=== PATIENT | female | born 1965 | race Caucasian/White ===

== ENCOUNTER 2018-01-31 01:17 | Observation (INO) ==
[2018-01-31] MEDS ORDERED: Naloxone 0.4 MG/ML INJ IVP PRN (02:56)
[2018-01-31] MEDS ORDERED: GI Cocktail 40 ML EACH PO ONE (02:58)
--- NOTE | 2018-01-31 04:13 | Internal Med History&Physical ---
Date of Encounter: 01/31/18 Time of Encounter: 03:51 Internal Medicine - H&P: HPI Chief complaint: cp Admitted From: Hospital to Hospital Transfer Plans for Post Hospital Care: Home History of present illness: Ms. Lambert is a 52 year old female presents with cc of chest pain. She was transfer from [facility]. Patient cp was located substernally, sharp, radiating to entire neck and back with assoicated symtoms of sob. She denies diaphoresis, palpitations, N/V, headache. Pain did not worsen with exertion or did not improve with rest. Patient improved after taking aspirin 81mg but she still had residual chest soreness/pressure. Patient was running errands when this happened. Her chest soreness continued to persist and she went to [facility] for evaluation. Patient also said she has had similar chest pain that woke her up in the middle of the night two days ago. She denies metallic taste in the morning. She also reports having band like abdominal pain in her upper abdomen that radiated to the back five days ago that lasted for three days and improved after she took a laxative. She reports problems with constipation. She denies hx of CAD, or family hx of CAD. She reports use of ibuprofen for frequent headaches. She denies hx of GERD. At [facility] patient EKG was NSR without ST-T wave depressions or elevations, troponin WNL, cbc and bmp wnl, cxr wnl. Patient was transferred for further evaluation as [facility] hospital was full. Patient reports she used to be on statin , ssri for anxiety and bisphosphanate for osteoporosis but stopped taking these medication a few years ago and has not followed up with pcp. Past Med Surg Social Fam HX - Past Medical History Medical history: hyperlipidemia, migraine Psychiatric history: no psych history - Past Surgical History Surgical History: cancer surgery, hysterectomy - Social History Smoking Status: Former smoker Smokeless Tobacco Status: No Alcohol use: rarely Drug use: none - Family History Father Age at : 61 Cause of : Lymphoma Hx Family Cardiac Disorders: No Hx Family Respiratory Disorders: No Hx Family Cancer: Yes (Lymphoma) Hx Family GI Disorders: No Hx Family Genitourinary Disorders: No Hx Family Endocrine Disorder: No Hx Family Musculoskeletal Disorders: Yes (OA) Hx Family Neuromuscular Disorders: No Hx Family Neurologic Disorders: No Hx Family HEENT Disorders: No Hx Family Autoimmune Disorders: No Hx Family Reproductive Disorders: No Hx Family Psychosocial Disorders: No Hx Family Medical Disorders: No Mother Age at : 50 Cause of : Breast CA Hx Family Cardiac Disorders: No Hx Family Respiratory Disorders: No Hx Family Cancer: Yes (Breast) Hx Family GI Disorders: No Hx Family Genitourinary Disorders: No Hx Family Endocrine Disorder: Yes (DM) Hx Family Musculoskeletal Disorders: No Hx Family Neuromuscular Disorders: No Hx Family Neurologic Disorders: No Hx Family HEENT Disorders: No Hx Family Autoimmune Disorders: No Hx Family Reproductive Disorders: No Hx Family Psychosocial Disorders: No Hx Family Medical Disorders: No Internal Medicine - H&P: Meds No Known Home Drugs 01/31/18 [History] 3 Allergy/AdvReac Type Severity Reaction Status Date / Time No Known Allergies Allergy Verified 01/31/18 01:37 All Systems PM: A 10-system review of systems was performed and is negative for pertinent findings except as documented above in the HPI. Review of systems: Constitutional: Denies fever, chills HEENT: Denies, trauma, blurry vision, eye discharge, ear pain, ear discharge neck pain, sore throat, rhinorrhea. Reports headache Heart: repors chest pain. Denies palpitations, LE edema Lungs: reports sob. Denies cough Abdomen: Denies abdominal pain nausea vomiting diarrhea MSK: Denies back pain, falls, joint pain Kidney: Denies dysuria, hematuria Skin: Denies rash, ulcers Neuro: Denies numbness and tingling Psych: denies axniety, depression - Constitutional Vitals: Temp Pulse Resp BP Pulse Ox 98.4 F 94 16 137/87 96 01/31/18 01:20 01/31/18 01:20 01/31/18 01:20 01/31/18 01:20 01/31/18 01:20 Exam: General: pleasant, without distress HEENT: Head atraumatic, normocephalic, EOMI, PERRL, absent ear discharge or trauma, Moist Mucous Membranes, uvula midline Neck: nontender to palpation, absent lymphadenopathy, Cardiovascualr: Regular rate and rhythm with no murmur, gallops or rubs, absent pedal edema, radial pulses 2 out of 4 Lungs: Clear to auscultation bilaterally, not in respiratory distress Abdomen: Soft nontender, nondistended positive bowel sounds, absent hepatomegaly Skin: warm and dry, absent rash, absent open wounds and nodules MSK: absent clubbing, cyanosis, joints without swelling Neuro: Cranial nerves II through XII intact, UE and LE sensation equal bilaterally, UE and LEstrength 5/5, alert oriented 3, Psych: good insight and judgement, - Assessment and plan (1) Atypical chest pain Current Visit: Yes Status: Acute Assessment and plan: 52 f presents with chest pain atypical chest pain heart score 2 (very low risk) hx of HLD and previous smoker (6 pack year history when she was a teenager) EKG normal sinus rhythm without st-twave changes troponin wnl cxr wnl absent chest wall tenderness etiology: cardiac, GERD plan: echo, stress ecg, trend troponin, aspirin, statin. Lipid panel. NPO. GI cocktail. (2) Hx of migraines Current Visit: Yes Status: Acute Assessment and plan: hx of migraines currently denies headache tylenol prn (3) Hx of hyperlipidemia Current Visit: Yes Status: Acute Assessment and plan: hx of hld lipid panel statin - Time Spent With Patient Total time spent is greater than 50% in coordination of care (as documented) at patient's floor/unit and/or counseling patient:
[2018-01-31 04:57] LABS: Hematocrit 39.6 % (35.3-44.9); Hemoglobin 13.4 g/dL (11.5-15.4); Mean Corpuscular HGB Conc 33.8 g/dL (31.6-35.5); Mean Corpuscular Hemoglobin 30.5 pg (28.0-33.3); Mean Platelet Volume 10.3 fL (9.4-12.4); Platelet Count 259 K/mcL (140-400); Red Cell Distribution Width 12.6 % (11.5-14.5)
[2018-01-31 05:23] LABS: BUN/Creatinine Ratio 19 (6-26); Blood Urea Nitrogen 14 mg/dL (6-20); Calcium 9.5 mg/dL (8.6-10.3); Carbon Dioxide 25 mEq/L (23-29); Chloride 108 mEq/L (98-107); Chol/HDL Ratio 4.9 (0-4.9); Cholesterol 161 mg/dL (< 200); Glucose 107 mg/dL (70-105); HDL Cholesterol 33 mg/dL (40-59); LDL Cholesterol,Calculated 111 mg/dL (0-99); Osmolality,Calculated 295 (280-300); Potassium 3.8 mEq/L (3.5-5.1); Sodium 142 mEq/L (136-145); Triglycerides 83 mg/dL (< 150); eGFR For Non-African Americans > 60 (> 60)
[2018-01-31] MEDS: *HR* Heparin 5,000 UNIT/ML VIAL SQ SCH ×2 (06:20→14:20)
[2018-01-31] MEDS ORDERED: Aspirin 81 MG TAB.CHEW PO SCH (09:00)
[2018-01-31 11:34] VITALS: BP 122/81
--- NOTE | 2018-01-31 13:53 | Event Note ---
Date of Encounter: 01/31/18 Time of Encounter: 13:52 Patient seen and evaluated at bedside, hemodynamically stable. She denies chest pain, shortness of breath. Pending results of her stress test for discharge planning.
--- NOTE | 2018-01-31 16:29 | Discharge Summary ---
- NOTES TO OUTPATIENT PROVIDER Notes to Outpatient Provider: regular f/u with primary care. Date of Encounter: 01/31/18 Time of Encounter: 16:25 - Discharge Diagnosis (1) Atypical chest pain Priority: Primary Status: Resolved (2) Hx of migraines Priority: Secondary Status: Chronic (3) Hx of hyperlipidemia Priority: Secondary Status: Chronic Hospital course: Ms. Lambert is a 52 year old female no significant medical history. Patient resent to the ED complaining of chest pain. Ischemic work up done, trop WNL, stress test negative for ischemia, 2D echo WNL. Patient symptoms resolved. - Time Spent with Patient Total time spent providing and/or coordinating discharge services: Greater than 30 minutes - Discharge Medications Prescriptions: Atorvastatin [Lipitor] 40 mg PO HS 30 Days #30 tablet Home Medications: Atorvastatin [Lipitor] 40 mg PO HS 30 Days #30 tablet 01/31/18 [Rx] Allergies/Adverse Reactions: 3 Allergy/AdvReac Type Severity Reaction Status Date / Time No Known Allergies Allergy Verified 01/31/18 01:37 Date of admission: 01/31/18 01:17 Primary care physician: Frances Bennett MD - Constitutional Vitals: Temp Pulse Resp BP Pulse Ox 98.1 F 92 16 122/81 97 01/31/18 11:33 01/31/18 11:33 01/31/18 11:33 01/31/18 11:33 01/31/18 11:33 Exam: General: Alert and oriented x4. No acute distress. Skin:Normal color, no rash, no lesions. HEENT:EOM, pupils equal, round and reactive. Cardiovascular: Regular rythm and rate, Normal S1 & S2, no rubs, murmurs or gallops. No JVD. Lungs: clear to auscultation bilaterally, no wheezes or crackles. Abdomen: Soft, non-tender, no rigidity. Extremities: No deformity, no edema or tenderness, no joint swelling or clubbing. Neurological: Normal cognition and motor skills. Rest of the physical exam is non contributory - Patient Status Disposition: Home, Self-Care Condition: Good Functional capacity at discharge: independent ambulation Overall status at discharge: patient is back to baseline - Discharge Instructions Follow Up With: Frances Bennett MD [Primary Care Provider] - - Diet and Activity Activity: resume usual activities as tolerated Diet: advance to your usual diet
== END 2018-01-31 16:50 | disposition home or self-care (01) ==
LOC: 3BNU → SUATTDRO 01:17
PROVIDERS: ADMIT Family Medicine; ATTEND Internal Medicine